=== PATIENT | female | born 1975 | race African-American/Black ===

== ENCOUNTER 2016-12-17 14:00 | Emergency (ER) | payer OTHER ==
[~2016-12-17] VITALS: Ht 162.6 cm; Wt 77.1 kg
[~2016-12-17 14:00] MED LIST: ASPI-612 PO; ATOR20TA58 PO; HYDR-971 PO; HYDR12.58 PO; IBUP-1060 PO; OMEP20CA9 PO; PANT40TA5 PO
[2016-12-17 14:07] VITALS: BP 131/82
[2016-12-17] MEDS ORDERED: SULF1TAB24 PO (14:25)
[2016-12-17] MEDS ORDERED: TRAM-48 PO (14:25)
[2016-12-17] MEDS ORDERED: MUPI15CR TP (14:25)
--- NOTE | 2016-12-17 14:25 | PHYS DOC ---
Past Medical History Past Medical History: High Cholesterol, Hypertension, Other Additional Past Medical Histor: LUPUS Past Surgical History: Tubal ligation Additional Past Surgical Histo: ablasion, d&c Alcohol Use: Occasionally Drug Use: None Adult General Chief Complaint Chief Complaint: FOOT INJURY PAIN HPI HPI Patient is a 41 year old female with history of hypertension, lupus, who presents today with redness and pain on the left medial foot that she noted 3 days ago. Patient denies any fever. Denies any injury. Denies any drainage from the area. Review of Systems Review of Systems Constitutional: Denies fever or chills [] Musculoskeletal: Denies back pain or joint pain [] Integument:redness and pain on the left medial foot Neurologic: Denies headache, focal weakness or sensory changes [] Allergies Allergies Allergies Coded Allergies Type Severity Reaction Last Updated Verified No Known Medication Allergies Allergy Unknown 02/24/15 Yes Physical Exam Physical Exam Constitutional: Well developed, well nourished, no acute distress, non-toxic appearance. [] Skin: Left medial foot with an area of redness approximately 3 x 3 cm. The area is warm tender to touch but not fluctuant. Neurovascular exam is intact to the left foot. Back: No tenderness, no CVA tenderness. [] Extremities: No tenderness, no cyanosis, no clubbing, ROM intact, no edema. [] Neurologic: Alert and oriented X 3, normal motor function, normal sensory function, no focal deficits noted. [] Psychologic: Affect normal, judgement normal, mood normal. [] Current Patient Data Vital Signs Vital Signs Date Time Temp Pulse Resp B/P (MAP) Pulse Ox O2 Delivery O2 Flow Rate FiO2 12/17/16 14:07 98.3 119 18 99 Room Air 98.3 EKG EKG [] Radiology/Procedures Radiology/Procedures [] Course & Med Decision Making Course & Med Decision Making Pertinent Labs and Imaging studies reviewed. (See chart for details) Patient has cellulitis of the left foot. Tetanus is up-to-date. Discharged with Bactrim and Bactroban cream. Follow-up with PCP in 1-2 weeks. Provided return precautions and discharged in stable condition. Dragon Disclaimer Dragon Disclaimer This electronic medical record was generated, in whole or in part, using a voice recognition dictation system. Departure Departure Impression: Primary Impression: Cellulitis of foot, left Disposition: HOME, SELF-CARE Condition: STABLE Referrals: CLAUDIA JUDD (PCP) Follow-up with your doctor in 1-2 weeks Patient Instructions: Cellulitis Additional Instructions: You were seen with cellulitis of the left foot. Keep the area clean and dry. Complete your antibiotics. Follow-up with your doctor in 1-2 weeks. Come back to the emergency room at any point symptoms worsen especially if the area of redness grows bigger or you have a fever. Scripts Tramadol Hcl (ULTRAM) 50 Mg Tablet 1 TAB PO Q6HRS, #30 TAB Prov: ROMAN SHER APRN 12/17/16 Mupirocin Calcium (BACTROBAN CREAM) 15 Gm Cream..g. 1 EDILBERTO TP TID, #30 GM Prov: ROMAN SHER APRN 12/17/16 Sulfamethoxazole/Trimethoprim (BACTRIM DS TABLET) 1 Each Tablet 1 TAB PO BID, #20 TAB Prov: ROMAN SHER APRN 12/17/16 ROMAN SHER APRN Dec 17, 2016 14:25
== END 2016-12-17 14:30 | disposition home or self-care (01) ==
LOC: ER 14:00
DX: L03.116 Cellulitis of left lower limb (principal); M32.9 Systemic lupus erythematosus, unspecified; I10 Essential (primary) hypertension; E78.00 Pure hypercholesterolemia, unspecified
CPT/HCPCS: 99283

== ENCOUNTER 2018-01-03 15:44 | Emergency (ER) | payer OTHER ==
[~2018-01-03] VITALS: Ht 162.6 cm; Wt 81.6 kg
[~2018-01-03 15:44] MED LIST changes: +MUPI15CR TP; +SULF1TAB24 PO; +TRAM-48 PO
[2018-01-03 16:07] VITALS: BP 131/102
--- NOTE | 2018-01-03 16:12 | PHYS DOC ---
Past Medical History Past Medical History: High Cholesterol, Hypertension, Other Additional Past Medical Histor: LUPUS Past Surgical History: Tubal ligation Additional Past Surgical Histo: ablasion, d&c Alcohol Use: Occasionally Drug Use: None Adult General Chief Complaint Chief Complaint: FOOT INJURY PAIN HPI HPI Patient is a 42 year old female with history of hypertension, lupus, high cholesterol, who presents today complaining of cellulitis of the left foot and right hand that began a couple days ago. Patient states she's had cellulitis on her foot 1 year ago. She states she was given Bactroban ointment and Bactrim which cleared the infection. Patient denies any fever. Denies any injuries to the affected extremities. Review of Systems Review of Systems Constitutional: Denies fever or chills [] Eyes: Denies change in visual acuity, redness, or eye pain [] HENT: Denies nasal congestion or sore throat [] Respiratory: Denies cough or shortness of breath [] Cardiovascular: No additional information not addressed in HPI [] GI: Denies abdominal pain, nausea, vomiting, bloody stools or diarrhea [] : Denies dysuria or hematuria [] Musculoskeletal: Denies back pain or joint pain [] Integument: Reports cellulitis to the left foot and right hand Neurologic: Denies headache, focal weakness or sensory changes [] All other systems were reviewed and found to be within normal limits, except as documented in this note. Allergies Allergies Allergies Coded Allergies Type Severity Reaction Last Updated Verified No Known Medication Allergies Allergy Unknown 02/24/15 Yes Physical Exam Physical Exam Constitutional: Well developed, well nourished, no acute distress, non-toxic appearance. [] HENT: Normocephalic, atraumatic, bilateral external ears normal, oropharynx moist, no oral exudates, nose normal. [] Eyes: PERRLA, EOMI, conjunctiva normal, no discharge. [] Neck: Normal range of motion, no tenderness, supple, no stridor. [] Cardiovascular:Heart rate regular rhythm, no murmur [] Lungs & Thorax: Bilateral breath sounds clear to auscultation [] Abdomen: Bowel sounds normal, soft, no tenderness, no masses, no pulsatile masses. [] Skin: Warm, dry, left medial foot, and top of the foot with mild erythema consistent with cellulitis. The area is warm, tender to touch. +2 left pedal pulse. Trace edema noted over the left foot. Right hand with small amount of redness on the palm concerning for cellulitis. Neurovascular exam is intact to the right upper extremity as well as right lower extremity. Patient also has artificial nails to the hands and feet. Negative Homans sign to the right lower extremity Back: No tenderness, no CVA tenderness. [] Extremities: No tenderness, no cyanosis, no clubbing, ROM intact, no edema. [] Neurologic: Alert and oriented X 3, normal motor function, normal sensory function, no focal deficits noted. [] Psychologic: Affect normal, judgement normal, mood normal. [] Current Patient Data Vital Signs Vital Signs Date Time Temp Pulse Resp B/P (MAP) Pulse Ox O2 Delivery O2 Flow Rate FiO2 01/03/18 16:07 98.9 90 18 131/102 (112) 100 Room Air 98.9 EKG EKG [] Radiology/Procedures Radiology/Procedures [] Course & Med Decision Making Course & Med Decision Making Pertinent Labs and Imaging studies reviewed. (See chart for details) This is a 42-year-old female patient presenting to the ED today with cellulitis of the left foot and right hand. Patient has had this infection before. She has quit a bit of artificial nails. Recommend she avoids artificial nails, manicures and pedicures they could be the source of the infection. Tetanus up-to -date. Discharged with Bactroban and Bactrim. Follow-up with PCP in 1-2 weeks. Dragon Disclaimer Dragon Disclaimer This electronic medical record was generated, in whole or in part, using a voice recognition dictation system. Departure Departure Impression: Primary Impression: Cellulitis of foot, left Additional Impression: Cellulitis of hand, right Disposition: 01 HOME, SELF-CARE Condition: STABLE Referrals: CLAUDIA JUDD (PCP) follow up in one week Patient Instructions: Cellulitis, [id number] Additional Instructions: You were evaluated in the emergency for cellulitis. Take the prescribed medications as ordered. Consider removing artificial nails and avoiding manicures and pedicures until the infection has cleared out completely. Return to the Ed if symptoms worsen Scripts Hydrocodone/Apap 5-325 (NORCO 5-325 TABLET) 1 Each Tablet 1 TAB PO Q6HRS PRN for PAIN, #20 TAB Prov: MUTUNGA,ROMAN [employer] SECURITY DEVELOPER 10/9/18 Mupirocin Calcium (BACTROBAN CREAM) 15 Gm Cream..g. 1 EDILBERTO TP TID, #30 GM Prov: ROMAN SHER APRN 01/03/18 Sulfamethoxazole/Trimethoprim (BACTRIM DS TABLET) 1 Each Tablet 1 TAB PO BID, #20 TAB Prov: ROMAN SHER APRN 01/03/18 Problem Qualifiers ROMAN SHER APRN Jan 03, 2018 16:12
[2018-01-03] MEDS ORDERED: HYDR-971 PO (16:16)
[2018-01-03] MEDS ORDERED: MUPI15CR TP (16:16)
[2018-01-03] MEDS ORDERED: SULF1TAB24 PO (16:16)
== END 2018-01-03 16:23 | disposition home or self-care (01) ==
LOC: ER 15:44
DX: L03.116 Cellulitis of left lower limb (principal); L03.113 Cellulitis of right upper limb; E78.00 Pure hypercholesterolemia, unspecified; I10 Essential (primary) hypertension
CPT/HCPCS: 99283

== ENCOUNTER 2018-05-14 06:19 | Emergency (ER) | payer SELFPAY ==
[~2018-05-14] VITALS: Ht 162.6 cm; Wt 81.6 kg
[~2018-05-14 06:19] MED LIST changes: +HYDR-3164 PO; -HYDR-971 PO
[2018-05-14] MEDS ORDERED: CYCLOBENZAPRINE 10 MG TABLET. PO ONE (07:15)
[2018-05-14] MEDS ORDERED: KETOROLAC 30 MG/ML VIAL. IM ONE (07:15)
[2018-05-14] MEDS ORDERED: NAPR-695 PO (07:18)
[2018-05-14] MEDS ORDERED: ORPH100T PO (07:18)
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
--- NOTE | 2018-05-14 07:52 | RAD ---
CT brain without contrast, CT cervical spine without contrast HISTORY: Head contusion, back pain post injury CT brain CT scan of the brain was done without contrast. There is no intracranial hemorrhage or subdural hematoma. There is no mass or shift of the midline. An acute CVA is not identified. Ventricles are normal in size. Sinuses are clear. A skull fracture is not evident. IMPRESSION: 1. No intracranial hemorrhage or acute finding noted. End impression CT cervical spine Axial CT images were obtained to the cervical spine. Sagittal and coronal reconstructed images were reviewed. Thyroid is homogeneous. There is no adenopathy in the neck C-spine is in normal alignment. A C-spine fracture is not identified. There is mild disc space narrowing and spurring at C5-6 and C6-7. Focal disc protrusion is not evident. IMPRESSION: 1. Mild degenerative spondylosis at C5-6 and C6-7. 2. No acute C-spine fracture. Electronically signed by: Jerman Blakely MD (05/14/2018 7:48 AM) [facility]
--- NOTE | 2018-05-14 08:07 | RAD ---
CT thoracic spine without contrast, CT cervical spine without contrast. HISTORY: Head contusion, back pain Axial CT images were obtained to the thoracic spine. Sagittal and coronal reconstructed images were reviewed. There is a prominent calcified granuloma at the right hilum. Visualized portions of the lungs are clear. There is no pleural effusion. A focal disc protrusion is not identified. Thoracic spine is in normal alignment. CT lumbar spine Axial CT images were obtained to the lumbar spine. Sagittal and coronal reconstructed images were reviewed. Lumbar spine is in normal alignment. The bladder is mildly distended. An acute fracture is not identified. There is mild bulging of the disc at L4-5. There is no foraminal stenosis or spinal stenosis. IMPRESSION: 1. No fracture noted in the thoracic spine. 2. No fracture noted in the lumbar spine. PQRS Compliance Statement: One or more of the following individualized dose reduction techniques were utilized for this examination: 1. Automated exposure control 2. Adjustment of the mA and/or kV according to patient size 3. Use of iterative reconstruction technique Electronically signed by: Jerman Blakely MD (05/14/2018 8:04 AM) [facility]
[2018-05-14 08:15] VITALS: BP 124/74
== END 2018-05-14 08:34 | disposition home or self-care (01) ==
LOC: EEVIPCON 06:19 → ER 06:19
DX: S00.03XA Contusion of scalp, initial encounter (principal); M54.2 Cervicalgia; M54.5 Low back pain; M47.892 Other spondylosis, cervical region; E78.00 Pure hypercholesterolemia, unspecified; I10 Essential (primary) hypertension; Z98.51 Tubal ligation status; Y08.89XA Assault by other specified means, initial encounter; Y93.89 Activity, other specified; Y92.89 Other specified places as the place of occurrence of the external cause; Y99.8 Other external cause status
CPT/HCPCS: 70450; 72125; 72128; 72131; 96372; 99284; J1885

== ENCOUNTER 2019-02-16 14:21 | Emergency (ER) | payer MEDICARE, MEDICAID ==
[~2019-02-16] VITALS: Ht 162.6 cm; Wt 79.4 kg
[~2019-02-16 14:21] MED LIST changes: +CEPH500C PO; +NAPR-695 PO; +OMEP20CA10 PO; -OMEP20CA9 PO; +ONDA4TAB7 PO; +ORPH100T PO; -PANT40TA5 PO; +PANT40TA77 PO
[2019-02-16 15:21] VITALS: BP 139/89
[2019-02-16] MEDS ORDERED: HYDR-3164 PO (15:39)
[2019-02-16] MEDS ORDERED: MUPI22OI2 TP (15:39)
[2019-02-16] MEDS ORDERED: SULF1TAB23 PO (15:39)
--- NOTE | 2019-02-16 15:42 | PHYS DOC ---
Past Medical History Past Medical History: High Cholesterol, Hypertension, Other Additional Past Medical Histor: LUPUS Past Surgical History: Tubal ligation Additional Past Surgical Histo: Uterine ablasion, d&c Alcohol Use: Occasionally Drug Use: None Adult General Chief Complaint Chief Complaint: SKIN PROBLEM HPI HPI Patient is a 43 year old female with history of hypertension, lupus, high cholesterol, who presents today complaining of cellulitis of the left foot and right hand that began a couple days ago, denies any injury, denies any fever. Patient states she's had cellulitis on her foot 1 year ago. She states she was given Bactroban ointment and Bactrim which cleared the infection. Review of Systems Review of Systems Constitutional: Denies fever or chills [] Musculoskeletal: Denies back pain or joint pain [] Integument: CELLULITIS to the right hand Neurologic: Denies headache, focal weakness or sensory changes [] All other systems were reviewed and found to be within normal limits, except as documented in this note. Allergies Allergies Allergies Coded Allergies Type Severity Reaction Last Updated Verified No Known Medication Allergies Allergy Unknown 02/24/15 Yes Physical Exam Physical Exam Constitutional: Well developed, well nourished, no acute distress, non-toxic appearance. [] Skin: Warm, dry, left dorsal foot with mild redness consistent of cellulitis. The cellulitis does not go to the ankle. The left foot is warm and tender to touch. Full range of motion to the left foot and toes. +2 left pedal pulse. Cap refill less than 2 seconds the left foot. Negative Homans sign to the left lower extremity. Right palm of the hand with redness. Neurovascular exam is intact. Back: No tenderness, no CVA tenderness. [] Extremities: No tenderness, no cyanosis, no clubbing, ROM intact, no edema. [] Neurologic: Alert and oriented X 3, normal motor function, normal sensory function, no focal deficits noted. [] Psychologic: Affect normal, judgement normal, mood normal. [] EKG EKG [] Radiology/Procedures Radiology/Procedures [] Course & Med Decision Making Course & Med Decision Making Pertinent Labs and Imaging studies reviewed. (See chart for details) This is a 43-year-old female patient presenting to the ED today with cellulitis of the left foot and right hand. Tetanus is up-to-date. Discharged with Bactroban and Bactrim which patient reports she used last time and it cleared the infection. Follow-up with PCP in one to 2 weeks. Jefeon Disclaimer Dragon Disclaimer This electronic medical record was generated, in whole or in part, using a voice recognition dictation system. Departure Departure Impression: Primary Impression: Cellulitis of foot, left Additional Impression: Cellulitis of hand, right Disposition: 01 HOME, SELF-CARE Condition: STABLE Referrals: CLAUDIA JUDD (PCP) Follow-up in 1-2 weeks Patient Instructions: Cellulitis, [id number] Additional Instructions: You were seen in the ED with cellulitis of the right hand and left foot please use the prescribed medications as ordered. Follow-up with your own doctor in 1-2 weeks. Scripts Mupirocin (MUPIROCIN OINTMENT) 22 Gm Oint...g. 1 EDILBERTO TP TID for WOUND CARE, #1 TUBE Prov: ROMAN SHER APRN 02/16/19 Sulfamethoxazole/Trimethoprim (BACTRIM 400-80 MG TABLET) 1 Each Tablet 1 TAB PO BID for 10 Days, #20 TAB 0 Refills Prov: ROMAN SHER APRN 02/16/19 Problem Qualifiers ROMAN SHER APRN Feb 16, 2019 15:42
== END 2019-02-16 15:51 | disposition home or self-care (01) ==
LOC: ER 14:21
DX: L03.116 Cellulitis of left lower limb (principal); L03.115 Cellulitis of right lower limb; E78.00 Pure hypercholesterolemia, unspecified; I10 Essential (primary) hypertension
CPT/HCPCS: 99283

== ENCOUNTER 2020-04-29 14:08 | Emergency (ER) | payer MEDICARE, MEDICAID ==
[~2020-04-29] VITALS: Ht 162.6 cm; Wt 81.8 kg
[~2020-04-29 14:08] MED LIST changes: -ASPI-612 PO; +ASPI-886 PO; +MUPI22OI2 TP; -OMEP20CA10 PO; +OMEP20CA16 PO; +SULF1TAB23 PO
[2020-04-29] MEDS ORDERED: PROCHLORPERAZINE 10 MG/2 ML VIAL. IV ONE (14:30)
[2020-04-29] MEDS ORDERED: IV NORMAL SALINE 1000ML BAG 1,000 ML IV ONE (14:30)
[2020-04-29] MEDS ORDERED: KETOROLAC 30 MG/ML VIAL. IVP ONE (14:30)
[2020-04-29] MEDS ORDERED: diphenhydrAMINE 50 MG/ML VIAL IVP ONE (14:30)
--- NOTE | 2020-04-29 14:37 | PHYS DOC ---
Past Medical History Past Medical History: High Cholesterol, Hypertension, Other Additional Past Medical Histor: LUPUS Past Surgical History: Tubal ligation Additional Past Surgical Histo: Uterine ablasion, d&c Smoking Status: Current Every Day Smoker Alcohol Use: Occasionally Drug Use: None General Adult EDM: Chief Complaint: BLURRED/DOUBLE VISION HPI: HPI: Patient is a 45 year old female who presents with 2 days of left-sided headache and face tingling and fingertip tingling. She states that the headache was wors e yesterday than today. 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 She states she is not taking any medications for symptoms today. She states she has had some nasal congestion and she did use of Flonase today. She does have some maxillary sinus facial pressure and tenderness with palpation. She states that she does have a history of migraines. She states that her migraines usually percent differently but the symptoms did present before the headache started yesterday. Patient has a history of lupus, hypertension, tubal ligation, high cholesterol, uterine ablation, smoker. Review of Systems: Review of Systems: Constitutional: Denies fever or chills. [] Eyes: Denies change in visual acuity. + Blurred vision [] HENT: + nasal congestion or denies sore throat. + Sinus pressure [] Respiratory: Denies cough or shortness of breath. [] Cardiovascular: Denies chest pain or edema. [] GI: Denies abdominal pain, nausea, vomiting, bloody stools or diarrhea. [] : Denies dysuria. [] Musculoskeletal: Denies back pain or joint pain. [] Integument: Denies rash. [] Neurologic: + headache, denies focal weakness or sensory changes. + Tingling to left side of face and fingertips bilaterally [] Endocrine: Denies polyuria or polydipsia. [] Lymphatic: Denies swollen glands. [] Psychiatric: Denies depression or anxiety. [] Heart Score: Risk Factors: Risk Factors: DM, Current or recent (<one month) smoker, HTN, HLP, family history of CAD, obesity. Risk Scores: Score 0 - 3: 2.5% MACE over next 6 weeks - Discharge Home Score 4 - 6: 20.3% MACE over next 6 weeks - Admit for Clinical Observation Score 7 - 10: 72.7% MACE over next 6 weeks - Early Invasive Strategies Allergies: Allergies: Allergies Coded Allergies Type Severity Reaction Last Updated Verified fluconazole Allergy Intermediate 02/16/19 Yes No Known Medication Allergies Allergy Unknown 02/24/15 Yes Physical Exam: PE: Constitutional: Well developed, well nourished, no acute distress, non-toxic appearance. [] HENT: Normocephalic, atraumatic, bilateral external ears normal, oropharynx moist, no oral exudates, nose normal. [] Eyes: PERRLA, EOMI, conjunctiva normal, no discharge. [] Neck: Normal range of motion, no tenderness, supple, no stridor. [] Cardiovascular:Heart rate regular rhythm, no murmur [] Lungs & Thorax: Bilateral breath sounds clear to auscultation [] Abdomen: Bowel sounds normal, soft, no tenderness, no masses, no pulsatile masses. [] Skin: Warm, dry, no erythema, no rash. [] Back: No tenderness, no CVA tenderness. [] Extremities: No tenderness, no cyanosis, no clubbing, ROM intact, no edema. [] Neurologic: Alert and oriented X 3, normal motor function, normal sensory function, no focal deficits noted. [] Psychologic: Affect normal, judgement normal, mood normal. Normal physical exam [] EKG: EK and read by Dr. Up as sinus rhythm and no STEMI Radiology/Procedures: Radiology/Procedures: [] Impression: [facility] [address] [place], [place] [id number] IMAGING REPORT Signed PATIENT: LUIS EDUARDO PASCUAL ACCOUNT: [id number] : 1975 LOCATION: ER AGE: 45 SEX: F EXAM STATUS: REG ER ORD. PHYSICIAN: JOSE ALEJANDRO MURPHY APRN REASON: headache, blurred vision, tingling, sinus pressure, hx migraines PROCEDURE: CT HEAD AND MAXILLOFACIAL WO CT HEAD AND MAXILLOFACIAL WO Date: 04/29/2020 3:02 PM Clinical Indication: headache, blurred vision, tingling, sinus pressure, hx migraines Comparison: None. Technique: 5 mm axial tomographic images were obtained of the head without contrast. These were viewed on brain and bone windows. Axial helical images of the face were obtained without contrast. Axial and coronal reconstruction was performed. One or more of the following dose reduction techniques were utilized: Automated exposure control (AEC), Adjustment of mA and/or kV according to patient size, Use of iterative reconstruction technique such as ASiR, CT scan done according to ALARA and image gently/image wisely CT HEAD FINDINGS: The brain parenchyma is normal in attenuation. No intra- or extra-axial mass or fluid collection. No acute hemorrhage. The ventricles are normal in size, shape, and morphology. The paul-white matter junction is normal. The basilar cisterns are patent. Trace left mastoid fluid. No aggressive osseous lesion or fracture. CT FACE FINDINGS: There is no acute facial bone fracture. Mild mucosal thickening in the right maxillary sinus alveolar recess. The paranasal sinuses are otherwise clear. The orbits are normal. The globes are intact. The nasal septum is mostly midline. Poor dentition with multiple dental caries and periapical lucencies. Impression: 1. No acute intracranial process. 2. No evidence of acute sinusitis. 3. Poor dentition with multiple dental caries and periapical lucencies. Dental referral is recommended. Electronically signed by: Clif Blanco MD (04/29/2020 3:30 PM) [facility] DICTATED and SIGNED BY: CLIF BLANCO MD DATE: 04/29/20 [id number] 0 Course & Med Decision Making: Course & Med Decision Making Pertinent Labs and Imaging studies reviewed. (See chart for details) See HPI. Alert and oriented x4. Ambulatory with a steady gait. NIH is 0. Speaks in full clear sentences. Skin pink warm and dry. No extremity edema. PERRLA. Intact sensations. Patient denies chest pain, vision loss, focal weakness, numbness, abdominal pain, nausea, vomiting, diarrhea, fever, neck pain, back pain, shortness of breath, syncope, fall. Patient will be given Toradol, Benadryl, Compazine. CT came back showing no acute findings except for many dental caries. Patient states she is feeling better with the Compazine made her feel fidgety. She is refusing the Toradol. Patient is asking for Tylenol instead. Patient states that her headache is gone and symptoms resolved. She is given strict return precautions. I have gone over this patient with Dr Up and he states she is ok to go home. [] Dragon Disclaimer: Dragon Disclaimer: This electronic medical record was generated, in whole or in part, using a voice recognition dictation system. NIHSS Stroke Scale NIH Stroke Scale: NIH Stroke Scale Response (Comments) Value Level of Consciousness: 0 Alert/Responsive 0 LOC Questions: 0 Answers both correctly 0 LOC Commands: 0 Performs both tasks 0 Best Gaze: 0 Normal 0 Visual: 0 No visual loss 0 Facial Palsy: 0 Normal, symmetrical 0 Motor - Left Arm 0 No drift 0 Motor - Right Arm 0 No drift 0 Motor - Left Leg 0 No drift 0 Motor: Right Leg 0 No drift 0 Limb Ataxia: 0 Absent 0 Sensory: 0 No loss 0 Best Language: 0 Normal 0 Dysathria: 0 Normal 0 Extinction and Inattention: 0 Normal 0 Total 0 Departure Departure Impression: Primary Impression: Migraine Qualified Codes: G43.109 - Migraine with aura, not intractable, without status migrainosus Additional Impression: Dental caries Disposition: 01 DC HOME SELF CARE/HOMELESS Condition: STABLE Referrals: CLAUDIA JUDD (PCP) Patient Instructions: Migraine Headache Additional Instructions: Follow up with primary care provider or a neurologist. Return for focal weakness, worsening numbness or tingling, severe headache. JOSE ALEJANDRO MURPHY APRN Apr 29, 2020 14:37
[2020-04-29 14:44] LABS: BASO % 1 % (0-3); EOS % 1 % (0-3); HEMATOCRIT 39.6 % (36.0-47.0); HEMOGLOBIN 13.9 g/dL (12.0-15.5); LYMPH # 1.1 x10^3/uL (1.0-4.8); LYMPH % 40 % (24-48); MEAN CORPUSCULAR HEMOGLOBIN 33 pg (25-35); MEAN CORPUSCULAR HGB CONC 35 g/dL (31-37); MEAN CORPUSCULAR VOLUME 95 fL (79-100); MONO # 0.3 x10^3/uL (0.0-1.1); MONO % 12 % (0-9); NEUT # 1.3 x10^3/uL (1.8-7.7); NEUT % 46 % (31-73); PLATELET COUNT 154 x10^3/uL (140-400); RED BLOOD COUNT 4.17 x10^6/uL (3.50-5.40); RED CELL DISTRIBUTION WIDTH 12.9 % (11.5-14.5); WHITE BLOOD COUNT 2.8 x10^3/uL (4.0-11.0)
[2020-04-29 14:46] LABS: BILIRUBIN,URINE NEGATIVE (NEG); CLARITY,URINE CLEAR; COLOR,URINE YELLOW; NITRITE,URINE NEGATIVE (NEG); PH,URINE 7.5 (<5.0-8.0); PROTEIN,URINE NEGATIVE (NEG-TRACE)
[2020-04-29 15:00] LABS: BACTERIA,URINE 0 /HPF (0-FEW); RBC,URINE 0 /HPF (0-2); WBC,URINE 0 /HPF (0-4)
[2020-04-29 15:03] LABS: CALCIUM 8.6 mg/dL (8.5-10.1); CREATININE 0.7 mg/dL (0.6-1.0); POTASSIUM 3.8 mmol/L (3.5-5.1)
--- NOTE | 2020-04-29 15:06 | EKG ---
[facility] [address] [place] [address] Test Date: 2020-04-29 Test Time: 14:28:59 Pat Name: LUIS EDUARDO PASCUAL Department: Room: Gender: F Outsewer: : 1975 Requested By: JOSE ALEJANDRO MURPHY Order Number: [id number] Reading MD: Measurements Intervals [place] Rate: 63 P: 0 KS: 132 QRS: 2 QRSD: 86 T: 0 QT: 386 QTc: 398 Interpretive Statements SINUS RHYTHM NORMAL ECG RI6.02 No previous ECG available for comparison
[2020-04-29 15:08] LABS: ALBUMIN 3.1 g/dL (3.4-5.0); ALBUMIN/GLOBULIN RATIO 0.7 (1.0-1.7); MAGNESIUM 1.8 mg/dL (1.8-2.4); TOTAL BILIRUBIN 0.4 mg/dL (0.2-1.0); TOTAL PROTEIN 7.4 g/dL (6.4-8.2)
--- NOTE | 2020-04-29 15:32 | RAD ---
CT HEAD AND MAXILLOFACIAL WO Date: 04/29/2020 3:02 PM Clinical Indication: headache, blurred vision, tingling, sinus pressure, hx migraines Comparison: None. Technique: 5 mm axial tomographic images were obtained of the head without contrast. These were view ed on brain and bone windows. Axial helical images of the face were obtained without contrast. Axial and coronal reconstruction was performed. One or more of the following dose reduction techniques were utilized: Automated exposure control (AEC), Adjustment of mA and/or kV according to patient size, Us e of iterative reconstruction technique such as ASiR, CT scan done according to ALARA and image gentl y/image wisely CT HEAD FINDINGS: The brain parenchyma is normal in attenuation. No intra- or extra-axial mass or fluid collection. No acute hemorrhage. The ventricles are normal in size, shape, and morphology. The paul-white matter mallory ction is normal. The basilar cisterns are patent. Trace left mastoid fluid. No aggressive osseous lesion or fracture. CT FACE FINDINGS: There is no acute facial bone fracture. Mild mucosal thickening in the right maxillary sinus alveolar recess. The paranasal sinuses are otherwise clear. The orbits are normal. The globes are intact. The nasal septum is mostly midline. Poor dentition with multiple dental caries and periapical lucencies. Impression: 1. No acute intracranial process. 2. No evidence of acute sinusitis. 3. Poor dentition with multiple dental caries and periapical lucencies. Dental referral is recommende d. Electronically signed by: Ishan Blanco MD (04/29/2020 3:30 PM) [facility]
[2020-04-29 15:45] VITALS: BP 127/77
[2020-04-29] MEDS ORDERED: ACETAMINOPHEN 325 MG TABLET. PO ONE (16:00)
== END 2020-04-29 16:56 | disposition home or self-care (01) ==
LOC: ER 14:08
DX: G43.109 Migraine with aura, not intractable, without status migrainosus (principal); K02.7 Dental root caries; R09.81 Nasal congestion; H53.8 Other visual disturbances; E78.00 Pure hypercholesterolemia, unspecified; I10 Essential (primary) hypertension; F17.200 Nicotine dependence, unspecified, uncomplicated; Z98.51 Tubal ligation status; Z98.890 Other specified postprocedural states; Z88.8 Allergy status to other drugs, medicaments and biological substances
CPT/HCPCS: 36415; 70450; 70486; 80053; 81001; 83735; 83880; 84484; 85025; 93005; 96361; 96374; 96375; 99285; J0780; J1200; J7030